=== PATIENT | male | born 1985 | race Two or more races ===

== ENCOUNTER 2016-05-04 10:45 | Emergency (ER) | payer OTHER ==
[~2016-05-04] VITALS: Ht 182.9 cm; Wt 77.1 kg
[2016-05-04 11:08] VITALS: BP 143/89
--- NOTE | 2016-05-04 11:43 | RAD ---
Three-view right foot radiographs 05/04/2016 Clinical history: Injury to the right first toe. AP, lateral and oblique digital radiographs of the right foot were obtained. A questionable nondisplaced fracture is seen involving the terminal tuft of the distal phalanx of the right first toe. This is best seen on the lateral radiograph. No radiopaque foreign body is noted. Impression: Question nondisplaced fracture involving the terminal tuft of the distal phalanx of the right first toe.
[2016-05-04] MEDS ORDERED: HYDROCODONE/APAP 5/325MG TABLET. PO ONE (12:15)
[2016-05-04] MEDS ORDERED: LIDOCAINE 1% / SOD BICARB 8.4% 20 ML VIAL. IJ ONE (12:15)
[2016-05-04] MEDS ORDERED: DIPHTH,PERTUSS(ACELL),TET TOX 0.5 ML DISP.SYRIN. VAX IM ONE (12:15)
[2016-05-04] MEDS ORDERED: DOXY100C2 PO (13:14)
[2016-05-04] MEDS ORDERED: HYDR-971 PO (13:14)
--- NOTE | 2016-05-04 13:14 | PHYS DOC ---
Past Medical History Past Medical History: No Pertinent History Past Surgical History: No Surgical History Alcohol Use: Occasionally Drug Use: None Adult General Chief Complaint Chief Complaint: TOE PROBLEM HPI HPI Patient is a 30 year old male presents emergency department stating that he was at work today when a brigette-type equipment rolled over his right great toe. He has stating he is having pain swelling with some bleeding noted. Patient was unsure when his last tetanus immunization occurred. He does have swelling noted at the site. Review of Systems Review of Systems Constitutional: Denies fever or chills [] Eyes: Denies change in visual acuity, redness, or eye pain [] HENT: Denies nasal congestion or sore throat [] Respiratory: Denies cough or shortness of breath [] Cardiovascular: No additional information not addressed in HPI [] GI: Denies abdominal pain, nausea, vomiting, bloody stools or diarrhea [] : Denies dysuria or hematuria [] Musculoskeletal: Denies back pain. Pain and tenderness to the right great toe Integument: Denies rash or skin lesions [] Neurologic: Denies headache, focal weakness or sensory changes [] Current Medications Current Medications Current Medications Medications (Trade) Dose Ordered Sig/Martha Start Time Stop Time Status Last Admin Dose Admin Acetaminophen/ Hydrocodone Bitart (Lortab 5/325) 2 tab 1X ONCE 05/04/16 12:15 05/04/16 12:16 DC 05/04/16 12:21 2 TAB Diphtheria/ Tetanus/Acell Pertussis (Boostrix) 0.5 ml ONCE ONCE 05/04/16 12:15 05/04/16 12:16 DC 05/04/16 12:24 0.5 ML Lidocaine/Sodium Bicarbonate (Buffered Lidocaine 1%) 20 ml 1X ONCE 05/04/16 12:15 05/04/16 12:16 DC 05/04/16 12:24 20 ML Allergies Allergies Allergies Coded Allergies Type Severity Reaction Last Updated Verified No Known Drug Allergies 05/04/16 No Physical Exam Physical Exam Constitutional: Well developed, well nourished, no acute distress, non-toxic appearance. [] HENT: Normocephalic, atraumatic, bilateral external ears normal, oropharynx moist, no oral exudates, nose normal. [] Eyes: PERRLA, EOMI, conjunctiva normal, no discharge. [] Neck: Normal range of motion, no tenderness, supple, no stridor. [] Cardiovascular:Heart rate regular rhythm, no murmur [] Lungs & Thorax: Bilateral breath sounds clear to auscultation [] Skin: Warm, dry, no erythema, no rash. [] Back: No tenderness Extremities: No tenderness, no cyanosis, no clubbing, ROM intact, no edema. Great toe red swollen very tender to touch patient has decreased range of motion at the tip of the toe. Neurologic: Alert and oriented X 3, normal motor function, normal sensory function, no focal deficits noted. [] Psychologic: Affect normal, judgement normal, mood normal. [] Current Patient Data Vital Signs Vital Signs Date Time Temp Pulse Resp B/P Pulse Ox O2 Delivery O2 Flow Rate FiO2 05/04/16 12:21 20 98 Room Air 05/04/16 11:08 98.1 81 98.1 EKG EKG [] Radiology/Procedures Radiology/Procedures [[facility] [address] [place] [address] IMAGING REPORT Signed PATIENT: PINKY HERNADEZ ACCOUNT: [id number] : 1985 LOCATION: ER AGE: 30 SEX: M EXAM STATUS: PRE ER ORD. PHYSICIAN: ARIK QUICK NP REASON: r/o fracture PROCEDURE: FOOT RIGHT 3V Three-view right foot radiographs 05/04/2016 Clinical history: Injury to the right first toe. AP, lateral and oblique digital radiographs of the right foot were obtained. A questionable nondisplaced fracture is seen involving the terminal tuft of the distal phalanx of the right first toe. This is best seen on the lateral radiograph. No radiopaque foreign body is noted. Impression: Question nondisplaced fracture involving the terminal tuft of the distal phalanx of the right first toe. DICTATED and SIGNED BY: TALIB CHOUDHURY MD DATE: 05/04/16 1135 CC: ARIK QUICK NP ~ ] Course & Med Decision Making Course & Med Decision Making Pertinent Labs and Imaging studies reviewed. (See chart for details) X-ray was cautioned will for fracture of the great toe. Patient had the right great toe injected with 6 mL of 1% lidocaine for digital block. Toenail had subungual hematoma this was performed with cautery. Moderate amount of blood noted. Toenail was replaced into the toe nail bed area. Patient was instructed that the toenail will be following off area patient was provided with a tetanus immunization here in the emergency department hydrocodone as well as the 1% lidocaine. Patient will be discharged home on doxycycline with recommendations to follow-up with orthopedic Friday. Patient was provided with Dr. Rojas name. Patient was instructed to keep the toe clean and dry. Was instructed to soak the toe in warm Epsom salt soaks twice a day. Into keep it covered. Patient will be discharged home in stable condition since symptoms to return back to emergency department as been provided. [] Dragon Disclaimer Dragon Disclaimer This electronic medical record was generated, in whole or in part, using a voice recognition dictation system. Departure Departure Impression: Primary Impression: Fracture of great toe, right, open Additional Impression: Subungual hematoma of great toe of right foot Disposition: HOME, SELF-CARE Condition: STABLE Referrals: NO PCP (PCP) TANYA ROJAS II, MD Patient Instructions: Subungual Hematoma, [id number], Toe Fracture-Brief Additional Instructions: Home to rest. Elevation as much as possible. Ice packs on 20 minutes off 20 minutes several times a day. 2 warm Epsom salt soaks to the right great toe 2-3 times a day. Medications as prescribed. Hydrocodone will cause drowsiness do not take any be alert and oriented. Follow-up with orthopedic in the next 2-3 days. Return back to emergency prior signs symptoms of become worse. Scripts Doxycycline Hyclate 100 Mg Capsule1 Cap PO BID #20 CAP Prov:ARIK QUICK [employer] 05/04/16 Hydrocodone/Apap 5-325 ([place] 5-325 Tablet)1 Each Tablet1 Tab PO PRN Q6HRS PRN PAIN #10 TAB Prov:ARIK QUICK [employer] 05/04/16 Problem Qualifiers ARIK QUICK NP May 04, 2016 13:14
== END 2016-05-04 13:20 | disposition home or self-care (01) ==
LOC: ER 10:45
DX: S92.424B Nondisplaced fracture of distal phalanx of right great toe, initial encounter for open fracture (principal); I10 Essential (primary) hypertension; X58.XXXA Exposure to other specified factors, initial encounter; Y93.89 Activity, other specified; Y92.89 Other specified places as the place of occurrence of the external cause; Y99.8 Other external cause status
CPT/HCPCS: 11760; 73630; 90471; 90715; 99284-25